=== PATIENT | female | born 1975 | race Caucasian/White ===

== ENCOUNTER 2017-11-12 07:37 | Day surgery (SDC) | payer OTHER ==
[2017-11-05 10:27] LABS: ABSOLUTE EOSINOPHILS # (AUTO) 0.1 10^3/uL (0.0-0.6); ABSOLUTE LYMPHOCYTES (AUTO) 2.6 10^3/uL (0.5-4.7); ABSOLUTE MONOCYTES (AUTO) 0.7 10^3/uL (0.1-1.4); ABSOLUTE NEUT (AUTO) 6.6 10^3/uL (1.7-8.2); BASOPHILS % (AUTO) 0.2 % (0-2); EOSINOPHILS % (AUTO) 0.8 % (0-6); HEMATOCRIT 42.2 % (36.0-47.0); HEMOGLOBIN 14.2 g/dL (12.0-15.5); LYMPHOCYTES % (AUTO) 25.7 % (13-45); MEAN CORPUSCULAR HEMOGLOBIN 28.2 pg (27.0-33.4); MEAN CORPUSCULAR HGB CONC 33.7 g/dL (32.0-36.0); MEAN CORPUSCULAR VOLUME 84 fl (80-97); PLATELET COUNT 237 10^3/uL (150-450); RED BLOOD COUNT 5.05 10^6/uL (3.72-5.28); RED CELL DISTRIBUTION WIDTH 14.7 % (11.5-14.0); SEGMENTED NEUTROPHILS % (AUTO) 66.3 % (42-78); TOTAL CELLS COUNTED % (AUTO) 100 %
[2017-11-05 10:28] LABS: APPEARANCE,URINE CLEAR; BILIRUBIN,URINE NEGATIVE (NEGATIVE); COLOR,URINE YELLOW; GLUCOSE, URINE NEGATIVE (NEGATIVE); KETONES,URINE NEGATIVE (NEGATIVE); LEUKOCYTE ESTERASE,URINE NEGATIVE (NEGATIVE); NITRITE,URINE NEGATIVE (NEGATIVE); PROTEIN,URINE NEGATIVE (NEGATIVE); URINE SPECIFIC GRAVITY 1.017; UROBILINOGEN,URINE NEGATIVE mg/dL (<2.0)
[2017-11-05 10:56] LABS: ANION GAP 11 (5-19); BLOOD UREA NITROGEN 16 mg/dL (7-20); CALCIUM 9.7 mg/dL (8.4-10.2); CARBON DIOXIDE 28 mmol/L (22-30); CHLORIDE 104 mmol/L (98-107); GLUCOSE 87 mg/dL (75-110); SODIUM 143.4 mmol/L (137-145)
[~2017-11-12 07:37] MED LIST: ACETAMINOPHEN 1,000 MG/100 ML RTUPB IV ONE; BUPIVACAINE HCL 0.25 % INJ/PF (2.5 MG/1 ML) 30 ML VIAL ONE; CEFAZOLIN 2 GM/D5W RTU 2 GM/50 ML RTUPB IV PRN; CEFAZOLIN SODIUM 2 GM in DEXTROSE 5%-WATER 100 ML IV PRN; DEXAMETHASONE SOD PHOSPHATE INJ 4 MG/1 ML VIAL ONE; FENTANYL CITRATE INJ/PF 100 MCG/2 ML AMPUL ONE; LACTATED RINGERS 1000 ML IV PRN; LIDOCAINE 0.5% INJ-PF (5 MG/ML) 50 ML SDV SUBCUT PRN; LIDOCAINE 2% INJ-PF (20 MG/ML) 10 ML AMPUL ONE; METHYLENE BLUE 50 MG/10 ML AMPULE ONE; MIDAZOLAM 2 MG/2 ML INJ ONE; PROPOFOL INJ 200 MG/20 ML VIAL IV ONE; RINGERS SOLUTION,LACTATED 1,000 ML IV PRN; SCOPOLAMINE HYDROBROMIDE 1.5 MG PATCH.TD72 TD PRN
[2017-11-12 08:41] LABS: ALANINE AMINOTRANSFERASE 25 U/L (9-52); ALBUMIN 4.1 g/dL (3.5-5.0); ALKALINE PHOSPHATASE 57 U/L (38-126); ASPARTATE AMINO TRANSFERASE 22 U/L (14-36); BILIRUBIN,DIRECT 0.3 mg/dL (0.0-0.4); BILIRUBIN,TOTAL 0.6 mg/dL (0.2-1.3); TOTAL PROTEIN 7.2 g/dL (6.3-8.2)
[2017-11-12] MEDS ORDERED: FENTANYL CITRATE INJ/PF 100 MCG/2 ML AMPUL IV PRN ×3 (09:58)
[2017-11-12] MEDS ORDERED: DIPHENHYDRAMINE HCL 50 MG/ML VIAL IV PRN (09:58)
[2017-11-12] MEDS ORDERED: PROMETHAZINE HCL INJ 25 MG/1 ML VIAL IV PRN ×3 (09:58→11:33)
[2017-11-12] MEDS ORDERED: MORPHINE SULFATE 10 MG/ML INJ IV PRN ×2 (09:58→11:31)
[2017-11-12] MEDS ORDERED: MEPERIDINE HCL/PF INJ 25 MG/1 ML DISP.SYRIN IV PRN (09:58)
[2017-11-12] MEDS ORDERED: ONDANSETRON HCL INJ/PF 4 MG/2 ML SDV IV PRN ×2 (09:58→11:34)
[2017-11-12] MEDS ORDERED: ATROPINE SULFATE INJ 1 MG/10 ML DISP.SYRIN IV ONE (10:06)
[2017-11-12] MEDS ORDERED: KETOROLAC TROMETHAMINE INJ/PF 30 MG/1 ML SDV ONE (11:16)
[2017-11-12] MEDS: FENTANYL CITRATE INJ/PF 100 MCG/2 ML AMPUL ONE ×2 (11:20→11:25)
[2017-11-12] MEDS ORDERED: NORMAL SALINE 1000 ML 1,000 ML IV ONE (11:45)
[2017-11-12] MEDS ORDERED: OXYCODONE-ACETAMINOPHEN 5-325 MG TABLET PO PRN ×2 (11:54→12:00)
[2017-11-12] MEDS ORDERED: OXYCODONE HCL IR 5 MG TABLET PO PRN (11:55)
[2017-11-12] MEDS ORDERED: KETOROLAC TROMETHAMINE INJ/PF 30 MG/1 ML SDV IV ONE (12:15)
[2017-11-12] MEDS ORDERED: (PENDING PHARMACY ID) (Rizatriptan Benzoate [Maxalt] 5 MG) PO PRN (12:40)
--- NOTE | 2017-11-12 12:40 | OPERATIVE REPORT E ---
Operative Report NAME: BOBBY RAMIREZ : 1975 AGE: 42Y DATE OF SURGERY: 11/12/2017 ROOM: PREOPERATIVE DIAGNOSES: 1. Menometrorrhagia, unresponsive to medical therapy. 2. Chronic pelvic pain. POSTOPERATIVE DIAGNOSES: 1. Menometrorrhagia, unresponsive to medical therapy. 2. Chronic pelvic pain. OPERATIONS: 1. Robotic total laparoscopic hysterectomy. 2. Bilateral salpingectomy remnants of the fallopian tubes. 3. Cystoscopy. SURGEON: Gwendolyn Bowser M.D. CAMPUS ADMINISTRATOR: Tennille Felix M.D. ANESTHESIA: General. ESTIMATED BLOOD LOSS: 100 mL. INTRAVENOUS FLUIDS: 1800 mL urine output, 300 mL clear at end of procedure. COMPLICATIONS: None. INDICATION: The patient is a 42-year-old G2, P2 who has had menometrorrhagia for several days given attempt at multiple medical regimens without resolution of her symptoms. The patient desires definitive surgical treatment. Counseling of robotic hysterectomy included but not limited to bleeding, infection, injury to surrounding organs or tissue, need of transfusion or the possibility of exploratory laparotomy in case there is bleeding that could not be identified or visualized during the surgical procedure or too many adhesions from her previous surgical history. The patient understood and consented to procedure and agreed to proceed to the operating room. FINDINGS: 1. Boggy adenomyosis like uterus. 2. Redness of fallopian tubes on the right and left. Patient has had a history of bilateral tubal ligation. 3. Normal ovaries bilaterally. 4. Normal cystoscopy findings. Normal after the hysterectomy portion. Normal ureters. Efflux bilaterally and normal integrity of the bladder wall mucosa. DESCRIPTION OF PROCEDURE: The patient was taken to the operating room. General anesthesia was induced without difficulty. She was placed in the dorsal lithotomy position and was thoroughly prepped and draped in the usual sterile fashion. A bear hugger was placed to maintain control of core body temperature. Navarro catheter was placed in the bladder. A heavy-weighted speculum was inserted in the vaginal mucosa. A single-toothed tenaculum was placed on the anterior lip of the cervix. Cervical os was dilated with Hegar dilators. Hegar dilators were used to dilate the cervix. Two figure of eight stitches around 3 and 9 o'clock were placed with anchoring stitches prior to placing the VCare. The VCare manipulator was attached to the uterus with a cervical ring and anchored to the stitches on the right and the left. The weighted speculum was removed from the vaginal mucosa. Single-toothed tenaculum was removed from the anterior lip of the cervix. Then, the courses of 2 sutures were placed on the lateral aspects of the cervix to be used as traction later in the case if needed along the VCare as well and they were anchored with an end. A horizontal supraumbilical incision was performed. The Veress needle was introduced without difficulty *------* after performing the drop test. Carbon dioxide was infused until pneumoperitoneum was obtained and this was, of course, after performing the water drop test, which was successfully performed. The Veress needle was then removed. The supraumbilical incision was slightly extended and 12 mm trocar and sutures were placed on the abdominal cavity under direct visualization without any difficulty. Trocar was removed. Robot laparoscopic was placed on the abdominal cavity. Please see the above findings. Intraperitoneal placement was confirmed. Local anesthesia was used at all ports prior to placing the surgery ports. Two 8 mm surgery ports were placed inferior to the umbilicus and lateral to the rectus abdominis muscles bilaterally. These ports were in the abdominal cavity under direct visualization away from the site of her tummy tuck previously. One was in the right lower and one in the left lower quadrant. An assistive port was inserted in her right upper quadrant as well under direct visualization. Prior to performing the hysterectomy, the ureters on both sides, right and left were both visualized and both had excellent peristalsis and were well in the visual field at all times. At this point, the fimbriated end of the fallopian tube on the right side was grasped, coagulated and transected with all the radiants along the mesosalpinx to the cornual region. The utero-ovarian ligament was cauterized and transected. The round ligaments were cauterized and transected all the way down to the level of the uterus. The right side of bladder flap was created without any difficulty and the contralateral side was performed in a similar fashion. Fimbriated end grasped, cauterized, and transected along with the mesosalpinx all the way to the cornual region. The round ligaments were cauterized and transected. Utero-ovarian ligament cauterized and transected all the way down to the level of the uterus and then the bladder flap on this side was connected to the contralateral side where it was performed initially. The bladder was pushed far away from the cervical ring. At this point, an anterior colpotomy was performed and a circumscribing the cervix in a circumferential manner cauterizing it and transecting the colpotomy in a circumferential manner. Of course, at every point of the procedure, the ureters were both in visual dorantes and well away from the surgical dorantes and they were both in normal peristalsis fashion. Once the ring was identified anteriorly, an anterior colpotomy was performed and performing a circumferential manner, the uterus and the remnants of the fallopian tubes were both removed and the vaginal cuff at this time was irrigated. Small blood vessels from the vaginal cuff were slightly oozing and those were cauterized very superficially, and then, at this point, the vaginal cuff was closed using the running V-Loc suture. Attention was turned to the ureters bilaterally. Again, they were both identified without any difficulty, peristalsing well away from the vaginal cuff, and they were both within normal appearance. A survey of the lateral pelvic sidewalls revealed excellent hemostasis. At this point, FloSeal was injected along the vaginal cuff for prophylactic measures for hemostasis. At this point, attention was turned to below to perform the cystoscopy portion. Cystoscope introduced without any difficulty. Bladder integrity was visualized. There were no foreign bodies or injuries to the bladder. There was excellent efflux from both ureteral orifices with strong efflux flow that was identified of methylene blue. The methylene blue was given during the vaginal cuff closure per my request to anesthesia. At this point, once the cystoscopy portion was done, the cystoscope was removed. The robot was undocked. The abdomen was desufflated. All trocars were removed. A 12 mm supraumbilical incision was repaired with a UR6 to reapproximate the fascia. Remaining incisions were closed with 4-0 Monocryl in a horizontal mattress fashion and in a running fashion for the supraumbilical and the right upper quadrant incisions were run with a 4-0 Monocryl stitch in continuous and subcuticular fashion. All sponge, lap, and instrument counts were noted to be correct x2 and patient did receive preoperative IV antibiotics. The Navarro bag was noted to contain clear urine at the end of the procedure with a little bit of blue hue and the patient had approximately 300 mL of urine output. Navarro catheter was removed. The patient was extubated successfully in the recovery room in stable condition. Again, hemostasis was noted and obtained throughout the whole procedure and both ureters were identified and noted to be well outside the surgical field with normal cystoscopy findings. The patient tolerated the procedure well and was sent to the recovery room in excellent condition. DICTATING PHYSICIAN: Gwendolyn Bowser MD [id number] PHY#: [id number] ID: [id number] JOB#: [id number] ACCT: [id number] cc:Gwendolyn Bowser >
[2017-11-12] MEDS ORDERED: SUCCINYLCHOLINE CHLORIDE INJ 200 MG/10 ML VIAL ONE (14:13)
[2017-11-12] MEDS ORDERED: ONDANSETRON HCL INJ/PF 4 MG/2 ML SDV ONE (14:13)
[2017-11-12] MEDS ORDERED: NEOSTIGMINE METHYLSULFATE 10 MG/10 ML VIAL ONE (14:13)
[2017-11-12] MEDS ORDERED: VECURONIUM BROMIDE INJ 10 MG VIAL IV ONE (14:13)
[2017-11-12] MEDS ORDERED: GLYCOPYRROLATE 1 MG/5 ML SYRINGE ONE (14:13)
[2017-11-12 16:58] VITALS: BP 106/60
== END 2017-11-12 17:33 | disposition home or self-care (01) ==
LOC: OROUT 07:37 → 2S 12:26 → OROUT 17:33
PROVIDERS: ATTEND Obstetrics & Gynecology
DX: N92.1 Excessive and frequent menstruation with irregular cycle (principal); G89.29 Other chronic pain; R10.2 Pelvic and perineal pain; N80.0 Endometriosis of uterus; D25.9 Leiomyoma of uterus, unspecified; I86.2 Pelvic varices; Z79.899 Other long term (current) drug therapy
CPT/HCPCS: 58571; S2900; 36415; 80048; 80076; 81001; 81025; 840; 85025; 86850; 86900; 86901; 88307; J0131; J0330; J0461; J0690; J1100; J1885; J2250; J2405; J2550; J2704; J3010; J3490; Q9968